=== PATIENT | female | born 1945 | race Caucasian/White ===

== ENCOUNTER → 2017-04-20 | Outpatient (CLI) | payer MEDICARE, BC ==
[2017-04-20 18:56] LABS: Basophils % (A) 1 %; CH 33.2; CHCM 32.6; Eosinophils # (A) 0.1 k/uL (0-0.7); Eosinophils % (A) 2 %; HCT 44.4 % (34.0-46.0); HDW 2.08; HGB 14.6 gm/dL (11.4-16.0); Luc # (Auto) 0.13; Luc % (Auto) 2; Lymphocytes % (A) 35 %; MCH 33.7 pg (25.0-35.0); MCV 102.2 fL (80.0-100.0); Mean Platelet Volume 7.4; Monocytes # (A) 0.3 k/uL (0-1.0); Monocytes % (A) 6 %; Neutrophils % (A) 54 %; RBC 4.34 m/uL (3.80-5.40); RDW 12.1 % (11.5-15.5); WBC 5.6 k/uL (3.8-10.6); WBC (Perox) 5.55
[2017-04-20 19:08] LABS: ALT 42 U/L (9-52); AST 24 U/L (14-36); Alkaline Phosphatase 71 U/L (38-126); Anion Gap 10 mmol/L; Blood Urea Nitrogen 16 mg/dL (7-17); Calcium 9.7 mg/dL (8.4-10.2); Carbon Dioxide 26 mmol/L (22-30); Chloride 104 mmol/L (98-107); Cholesterol 212 mg/dL (<200); Glucose 89 mg/dL (74-99); HDL Cholesterol 70 mg/dL (40-60); Non-African American GFR(MDRD) >60 (>60 ml/min/1.73 sqM); Potassium 4.6 mmol/L (3.5-5.1); Sodium 140 mmol/L (137-145); Total Bilirubin 1.6 mg/dL (0.2-1.3)
== END | disposition home or self-care (01) ==
LOC: MMGSC 09:17
PROVIDERS: ATTEND Family Medicine
DX: I10 Essential (primary) hypertension (principal)
CPT/HCPCS: 36415; 80053; 80061; 84439; 84443; 85025

== ENCOUNTER → 2019-06-07 | Outpatient (CLI) | payer MEDICARE, BC ==
--- NOTE | 2019-06-08 07:05 | US ---
EXAMINATION TYPE: US pelvic limited DATE OF EXAM: 06/07/2019 COMPARISON: NONE CLINICAL HISTORY: R10.2 Pelvic and perineal pain. Pain left posterior buttocks area. TECHNIQUE: Transabdominal (TA). Scanned area of concern. No abnormalities seen posterior left buttocks. IMPRESSION: Scanning of the area of clinical concern shows no worrisome solid or cystic mass or abnor mal fluid collection. Normal subcutaneous fat and deeper muscle tissue is noted on images saved .
== END | disposition home or self-care (01) ==
LOC: RADUSWWP 15:30
PROVIDERS: ATTEND Family Medicine
DX: R10.2 Pelvic and perineal pain (principal)
CPT/HCPCS: 76857

== ENCOUNTER 2020-09-16 10:39 | Emergency (ER) | payer MEDICARE, BC ==
[2020-09-16] MEDS ORDERED: MECLIZINE 12.5 MG TAB PO STA (11:04)
--- NOTE | 2020-09-16 11:06 | ED ---
General Adult HPI - General Chief complaint: Dizziness Stated complaint: dizzy, nausea Time Seen by Provider: 09/16/20 10:51 Source: patient Mode of arrival: wheelchair Limitations: no limitations, physical limitation - History of Present Illness Initial comments: Dictation was produced using [employer] dictation software. please excuse any grammatical, word or spelling errors. This patient was cared for during a federal and state declared state of emergency secondary to Covid 19 Chief Complaint: 75-year-old female with past medical history of hypertension presents with vertigo History of Present Illness: 75-year-old female for the last week she has been suffering from vertiginous symptoms. Patient states that every time she moves about turns her head she feels like the room is spinning. Patient has a history of vertigo. Denies any difficulty walking. She states that she present to the emergency department today because her symptoms got worse and rude to take her dog to that appointment. Patient denies any history of stroke. States her symptoms are really bad whenever she is lying down in a decubitus position either right or left. States that if she stays still symptoms are improved. Patient has any gait instability. The ROS documented in this emergency department record has been reviewed and confirmed by me. Those systems with pertinent positive or negative responses have been documented in the HPI. All other systems are other negative and/or noncontributory. PHYSICAL EXAM: General Impression: Alert and oriented x3, not in acute distress HEENT: Normocephalic atraumatic, extra-ocular movements intact, pupils equal and reactive to light bilaterally, mucous membranes moist. Cardiovascular: Heart regular rate and rhythm Chest: Able to complete full sentences, no retractions, no tachypnea Abdomen: abdomen soft, non-tender, non-distended, no organomegaly Musculoskeletal: Pulses present and equal in all extremities, no peripheral edema Motor: no focal deficits noted Neurological: CN II-XII grossly intact, no focal motor or sensory deficits noted, left beating nystagmus with left lateral decubitus position, negative test askew, no direction changing nystagmus, negative head impulse test. Skin: Intact with no visualized rashes Psych: Normal affect and mood ED course: 75 yo female presents to emergency department with clinical presentation consistent with benign vertigo. Signs upon arrival are within acceptable limits. Patient does not have any high-risk features on physical examination. Laboratory evaluation obtained. CBC unremarkable. Metabolic panel is negative. Urinalysis shows 15 white blood cells. Patient reevaluated after Antivert with improvement of her vertiginous symptoms. Patient states she has not eaten lunch yet states that she feels a little hungry and maybe a little lightheaded from it. She wants to be discharged so that they can have lunch. Patient given prescription for Antivert and antibiotics. She has an appointment with her primary care physician on . Patient is encouraged to keep that appointment and to extremity feels her primary care physician of her ER visit today. Patient agreeable to disposition.. EKG interpretation: Ventricular rate 61, normal sinus rhythm, NC interval 150, QRS 80, QTc 434. No NC prolongation, no QTC prolongation, no ST or T-wave changes noted. Overall, this EKG is unremarkable - Related Data Home Medications Medication Instructions Recorded Confirmed hydroCHLOROthiazide [Hydrodiuril] 25 mg PO PC-LUNCH 09/16/20 09/16/20 Previous Rx's Medication Instructions Recorded Cephalexin [Keflex] 500 mg PO Q6HR 7 Days #28 cap 09/16/20 Meclizine [Antivert] 25 mg PO TID PRN #15 tab 09/16/20 Allergies Allergy/AdvReac Type Severity Reaction Status Date / Time No Known Allergies Allergy Verified 09/16/20 12:05 Review of Systems ROS Statement: Those systems with pertinent positive or pertinent negative responses have been documented in the HPI. ROS Other: All systems not noted in ROS Statement are negative. Past Medical History Past Medical History: Hypertension History of Any Multi-Drug Resistant Organisms: None Reported Past Surgical History: Appendectomy, Cholecystectomy, Hysterectomy, Tonsillectomy Past Psychological History: No Psychological Hx Reported Smoking Status: Never smoker Past Alcohol Use History: None Reported Past Drug Use History: None Reported General Exam Limitations: no limitations, physical limitation Course Vital Signs 09/16/20 09/16/20 10:43 11:17 Temperature 97.9 F Pulse Rate 64 86 Respiratory 18 16 Rate Blood Pressure 185/96 145/81 O2 Sat by Pulse 99 100 Oximetry Medical Decision Making - Lab Data Result diagrams: 09/16/20 11:06 09/16/20 11:06 Lab Results 09/16/20 09/16/20 09/16/20 Range/Units 11:06 11:06 11:06 WBC 8.1 (3.8-10.6) k/uL RBC 4.78 (3.80-5.40) m/uL Hgb 15.8 (11.4-16.0) gm/dL Hct 47.0 H (34.0-46.0) % MCV 98.4 (80.0-100.0) fL MCH 33.1 (25.0-35.0) pg MCHC 33.6 (31.0-37.0) g/dL RDW 11.7 (11.5-15.5) % Plt Count 252 (150-450) k/uL MPV 7.0 Neutrophils % 55 % Lymphocytes % 35 % Monocytes % 5 % Eosinophils % 2 % Basophils % 1 % Neutrophils # 4.4 (1.3-7.7) k/uL Lymphocytes # 2.8 (1.0-4.8) k/uL Monocytes # 0.4 (0-1.0) k/uL Eosinophils # 0.2 (0-0.7) k/uL Basophils # 0.1 (0-0.2) k/uL Sodium 139 (137-145) mmol/L Potassium 4.1 (3.5-5.1) mmol/L Chloride 105 (98-107) mmol/L Carbon Dioxide 25 (22-30) mmol/L Anion Gap 9 mmol/L BUN 22 H (7-17) mg/dL Creatinine 0.88 (0.52-1.04) mg/dL Est GFR (CKD-EPI)AfAm 74 (>60 ml/min/1.73 sqM) Est GFR (CKD-EPI)NonAf 64 (>60 ml/min/1.73 sqM) Glucose 103 H (74-99) mg/dL Calcium 9.8 (8.4-10.2) mg/dL Magnesium 1.9 (1.6-2.3) mg/dL Urine Color Yellow Urine Appearance Clear (Clear) Urine pH 6.0 (5.0-8.0) Ur Specific [place] 1.011 (1.001-1.035) Urine Protein Negative (Negative) Urine Glucose (UA) Negative (Negative) Urine Ketones Negative (Negative) Urine Blood Negative (Negative) Urine Nitrite Negative (Negative) Urine Bilirubin Negative (Negative) Urine Urobilinogen <2.0 (<2.0) mg/dL Ur Leukocyte Esterase Moderate H (Negative) Urine RBC 1 (0-5) /hpf Urine WBC 15 H (0-5) /hpf Ur Squamous Epith Cells 1 (0-4) /hpf Urine Bacteria Many H (None) /hpf Urine Mucus Rare H (None) /hpf Disposition Clinical Impression: Vertigo Disposition: HOME SELF-CARE Condition: Good Instructions (If sedation given, give patient instructions): Vertigo (ED), Urinary Tract Infection in Women (ED) Prescriptions: Meclizine [Antivert] 25 mg PO TID PRN #15 tab PRN Reason: dizziness Cephalexin [Keflex] 500 mg PO Q6HR 7 Days #28 cap Is patient prescribed a controlled substance at d/c from ED?: No Referrals: Tere Garces MD [Primary Care Provider] - 1-2 days Time of Disposition: 12:41
[2020-09-16 11:29] LABS: Basophils # (A) 0.1 k/uL (0-0.2); Basophils % (A) 1 %; Eosinophils # (A) 0.2 k/uL (0-0.7); Eosinophils % (A) 2 %; HGB 15.8 gm/dL (11.4-16.0); Lymphocytes # (A) 2.8 k/uL (1.0-4.8); Lymphocytes % (A) 35 %; MCH 33.1 pg (25.0-35.0); MCHC 33.6 g/dL (31.0-37.0); MCV 98.4 fL (80.0-100.0); Monocytes # (A) 0.4 k/uL (0-1.0); Monocytes % (A) 5 %; Neutrophils # (A) 4.4 k/uL (1.3-7.7); Neutrophils % (A) 55 %; Platelet Count 252 k/uL (150-450); RBC 4.78 m/uL (3.80-5.40); RDW 11.7 % (11.5-15.5); WBC 8.1 k/uL (3.8-10.6)
[2020-09-16 11:38] LABS: Appearance,Urine Clear (Clear); Bacteria,Urine Many /hpf; Bilirubin,Urine Negative (Negative); Blood,Urine Negative (Negative); Calcium 9.8 mg/dL (8.4-10.2); Color,Urine Yellow; Glucose,Urine (UA) Negative (Negative); Ketones,Urine Negative (Negative); Leukocyte Esterase,Urine Moderate (Negative); Magnesium 1.9 mg/dL (1.6-2.3); Mucus,Urine Rare /hpf; Nitrite,Urine Negative (Negative); Potassium 4.1 mmol/L (3.5-5.1); Protein,Urine Negative (Negative); RBC,Urine 1 /hpf (0-5); Specific Gravity,Urine 1.011 (1.001-1.035); Squamous Epithelial Cell,Urine 1 /hpf (0-4); Urobilinogen,Urine <2.0 mg/dL (<2.0); WBC,Urine 15 /hpf (0-5)
[2020-09-16 12:59] VITALS: BP 152/68; PULSE 61; RESP 18; TEMP 98.3
== END 2020-09-16 13:03 | disposition home or self-care (01) ==
LOC: EC 10:39
DX: R42 Dizziness and giddiness (principal); R82.998 Other abnormal findings in urine; I10 Essential (primary) hypertension; Z79.899 Other long term (current) drug therapy
CPT/HCPCS: 36415; 80048; 81001; 83735; 85025; 87077; 87086; 87186; 93005; 99284

== ENCOUNTER 2021-09-13 00:06 | Emergency (ER) | payer MEDICARE, BC ==
[2021-09-13 00:30] VITALS: RESP 16; TEMP 97
--- NOTE | 2021-09-13 00:48 | ED ---
Neuro HPI - General Chief Complaint: Neuro Symptoms/Deficit Stated Complaint: Urogenital Time Seen by Provider: 09/13/21 00:09 Source: patient - History of Present Illness Is the patient presenting with stroke symptoms?: Yes Last Known Well Date: 09/12/21 Last Known Well Time: 20:30 Onset/Timin -: hour(s) Initial Comments: This patient is a 76-year-old woman who presents to have evaluation for a number of things that started this evening after 8 PM. The patient states that she felt like her heart started racing at 8 PM. She started feeling flushed and she checked her blood pressure. I was found to be somewhat elevated. She waited and then rechecked it and the blood pressure was a little over 190/100. Her heart rate was up to 106. She started feeling like she was having some numbness on the left side of her face. When the symptoms continued she phoned EMS and they brought her here. Patient states that she subsequently is feeling much better. The facial numbness has gone away. She did not notice any weakness or numbness of the extremities. No change in vision, speech or swallowing. Location: left face History of same: No Place: home Severity: moderate Quality: numb Improves With: time Worsens With: none Context: gradual onset Associated Symptoms: denies other symptoms Treatments Prior to Arrival: none - Related Data Home Medications: Home Medications Medication Instructions Recorded Confirmed hydroCHLOROthiazide [Hydrodiuril] 25 mg PO PC-LUNCH 09/16/20 09/16/20 Previous Rx's Medication Instructions Recorded Cephalexin [Keflex] 500 mg PO Q6HR 7 Days #28 cap 09/16/20 Meclizine [Antivert] 25 mg PO TID PRN #15 tab 09/16/20 Allergies/Adverse Reactions: Allergies Allergy/AdvReac Type Severity Reaction Status Date / Time No Known Allergies Allergy Verified 09/16/20 12:05 Review of Systems ROS Statement: Those systems with pertinent positive or pertinent negative responses have been documented in the HPI. ROS Other: All systems not noted in ROS Statement are negative. Constitutional: Denies: fever, chills, weakness Eyes: Denies: eye pain, vision change Respiratory: Denies: cough, dyspnea, wheezes Cardiovascular: Reports: palpitations. Denies: chest pain, orthopnea, edema, syncope Gastrointestinal: Denies: abdominal pain, vomiting, diarrhea Genitourinary: Denies: dysuria, hematuria Musculoskeletal: Denies: back pain Skin: Denies: rash Neurological: Reports: as per HPI, numbness. Denies: headache, weakness, confusion Psychiatric: Reports: anxiety General Exam General appearance: alert, in no apparent distress Head exam: Present: atraumatic, normocephalic Eye exam: Present: normal appearance, PERRL, EOMI. Absent: scleral icterus, conjunctival injection, nystagmus ENT exam: Present: normal oropharynx Neck exam: Present: normal inspection Respiratory exam: Present: normal lung sounds bilaterally. Absent: respiratory distress, wheezes, rales, rhonchi, stridor Cardiovascular Exam: Present: regular rate, normal rhythm, normal heart sounds. Absent: systolic murmur, diastolic murmur, rubs, gallop GI/Abdominal exam: Present: soft. Absent: distended, tenderness, guarding, rebound, rigid, mass Extremities exam: Present: normal inspection, normal capillary refill. Absent: pedal edema, calf tenderness Back exam: Present: normal inspection. Absent: CVA tenderness (R), CVA tenderness (L) Neurological exam: Present: alert, oriented X3, CN II-XII intact. Absent: motor sensory deficit Skin exam: Present: warm, dry, intact, normal color. Absent: rash Stroke MDM - Lab Data Result diagrams: 09/13/21 00:31 09/13/21 00:31 Lab Results 09/13/21 09/13/21 09/13/21 Range/Units 00:31 00:31 00:31 WBC 9.2 (3.8-10.6) k/uL RBC 4.00 (3.80-5.40) m/uL Hgb 13.1 (11.4-16.0) gm/dL Hct 41.0 (34.0-46.0) % MCV 102.4 H (80.0-100.0) fL MCH 32.7 (25.0-35.0) pg MCHC 31.9 (31.0-37.0) g/dL RDW 11.7 (11.5-15.5) % Plt Count 250 (150-450) k/uL MPV 7.4 Neutrophils % 60 % Lymphocytes % 29 % Monocytes % 6 % Eosinophils % 2 % Basophils % 1 % Neutrophils # 5.5 (1.3-7.7) k/uL Lymphocytes # 2.6 (1.0-4.8) k/uL Monocytes # 0.6 (0-1.0) k/uL Eosinophils # 0.2 (0-0.7) k/uL Basophils # 0.1 (0-0.2) k/uL PT 9.6 (9.0-12.0) sec INR 0.9 (<1.2) APTT 23.3 (22.0-30.0) sec Sodium 140 (137-145) mmol/L Potassium 3.8 (3.5-5.1) mmol/L Chloride 108 H (98-107) mmol/L Carbon Dioxide 24 (22-30) mmol/L Anion Gap 8 mmol/L BUN 22 H (7-17) mg/dL Creatinine 0.89 (0.52-1.04) mg/dL Est GFR (CKD-EPI)AfAm 72 (>60 ml/min/1.73 sqM) Est GFR (CKD-EPI)NonAf 63 (>60 ml/min/1.73 sqM) Glucose 105 H (74-99) mg/dL Calcium 9.1 (8.4-10.2) mg/dL Total Bilirubin 0.6 (0.2-1.3) mg/dL AST 23 (14-36) U/L ALT 18 (4-34) U/L Alkaline Phosphatase 75 (38-126) U/L Troponin I (0.000-0.034) ng/mL Total Protein 6.6 (6.3-8.2) g/dL Albumin 3.7 (3.5-5.0) g/dL 09/13/21 Range/Units 00:31 WBC (3.8-10.6) k/uL RBC (3.80-5.40) m/uL Hgb (11.4-16.0) gm/dL Hct (34.0-46.0) % MCV (80.0-100.0) fL MCH (25.0-35.0) pg MCHC (31.0-37.0) g/dL RDW (11.5-15.5) % Plt Count (150-450) k/uL MPV Neutrophils % % Lymphocytes % % Monocytes % % Eosinophils % % Basophils % % Neutrophils # (1.3-7.7) k/uL Lymphocytes # (1.0-4.8) k/uL Monocytes # (0-1.0) k/uL Eosinophils # (0-0.7) k/uL Basophils # (0-0.2) k/uL PT (9.0-12.0) sec INR (<1.2) APTT (22.0-30.0) sec Sodium (137-145) mmol/L Potassium (3.5-5.1) mmol/L Chloride (98-107) mmol/L Carbon Dioxide (22-30) mmol/L Anion Gap mmol/L BUN (7-17) mg/dL Creatinine (0.52-1.04) mg/dL Est GFR (CKD-EPI)AfAm (>60 ml/min/1.73 sqM) Est GFR (CKD-EPI)NonAf (>60 ml/min/1.73 sqM) Glucose (74-99) mg/dL Calcium (8.4-10.2) mg/dL Total Bilirubin (0.2-1.3) mg/dL AST (14-36) U/L ALT (4-34) U/L Alkaline Phosphatase (38-126) U/L Troponin I <0.012 (0.000-0.034) ng/mL Total Protein (6.3-8.2) g/dL Albumin (3.5-5.0) g/dL Past Medical History Past Medical History: Hypertension History of Any Multi-Drug Resistant Organisms: None Reported Past Surgical History: Appendectomy, Cholecystectomy, Hysterectomy, Tonsillectomy Past Psychological History: No Psychological Hx Reported Smoking Status: Never smoker Past Alcohol Use History: None Reported Past Drug Use History: None Reported Course Vital Signs 09/13/21 00:19 Temperature 97.0 F L Pulse Rate 69 Respiratory 16 Rate Blood Pressure 172/87 O2 Sat by Pulse 95 Oximetry Disposition Clinical Impression: Hypertension Narrative: Possible TIA Disposition: HOME SELF-CARE Condition: Good Instructions (If sedation given, give patient instructions): Transient Ischemic Attack (ED), Hypertension (ED) Is patient prescribed a controlled substance at d/c from ED?: No Referrals: Tere Garces MD [Primary Care Provider] - 1-2 days oJan Johnston MD [REFERRING] - 1-2 days
[2021-09-13 01:09] LABS: Basophils # (A) 0.1 k/uL (0-0.2); Basophils % (A) 1 %; Eosinophils # (A) 0.2 k/uL (0-0.7); Eosinophils % (A) 2 %; HGB 13.1 gm/dL (11.4-16.0); Lymphocytes # (A) 2.6 k/uL (1.0-4.8); Lymphocytes % (A) 29 %; MCH 32.7 pg (25.0-35.0); MCHC 31.9 g/dL (31.0-37.0); MCV 102.4 fL (80.0-100.0); Mean Platelet Volume 7.4; Monocytes # (A) 0.6 k/uL (0-1.0); Monocytes % (A) 6 %; Neutrophils # (A) 5.5 k/uL (1.3-7.7); Neutrophils % (A) 60 %; Platelet Count 250 k/uL (150-450); RDW 11.7 % (11.5-15.5); WBC 9.2 k/uL (3.8-10.6)
[2021-09-13 01:18] LABS: INR 0.9 (<1.2); Partial Thromboplastin Time 23.3 sec (22.0-30.0); Prothrombin Time 9.6 sec (9.0-12.0)
[2021-09-13 01:28] LABS: Albumin 3.7 g/dL (3.5-5.0); Calcium 9.1 mg/dL (8.4-10.2); Potassium 3.8 mmol/L (3.5-5.1); Total Bilirubin 0.6 mg/dL (0.2-1.3); Total Protein 6.6 g/dL (6.3-8.2)
--- NOTE | 2021-09-13 01:41 | CT ---
EXAMINATION TYPE: CT brain wo con for TPA DATE OF EXAM: 09/13/2021 COMPARISON: None HISTORY: Left Facial Numbness CT DLP: 1070.40 mGycm Automated exposure control for dose reduction was used. There is mild cerebral atrophy. There is no mass effect or midline shift. There is no sign of intracr anial hemorrhage. Calvarium is intact. Skull base is intact. There is normal aeration of the mastoid sinuses. IMPRESSION: Mild atrophy. No acute intracranial abnormality.
--- NOTE | 2021-09-13 01:43 | XR ---
EXAMINATION TYPE: XR chest 2V DATE OF EXAM: 09/13/2021 COMPARISON: NONE HISTORY: Altered mental status TECHNIQUE: 2 views FINDINGS: There is no heart failure nor confluent pneumonic infiltrate. Costophrenic angles are clear . Bony thorax is intact. IMPRESSION: No active cardiopulmonary disease. Normal heart.
[2021-09-13 04:03] VITALS: BP 159/85; PULSE 74
== END 2021-09-13 04:03 | disposition home or self-care (01) ==
LOC: EC 00:06
DX: I10 Essential (primary) hypertension (principal); Z79.899 Other long term (current) drug therapy
CPT/HCPCS: 36415; 70450; 71046; 80053; 84484; 85025; 85610; 85730; 93005; 99285

== ENCOUNTER 2021-09-30 11:07 | Day surgery (SDC) | payer MEDICARE, BC ==
[2021-09-25 14:48] VITALS: BMI 27.4
[~2021-09-30 11:07] MED LIST: LACTATED RINGERS 1,000 ML IV SCH; LIDOCAINE 1% (10MG/ML) FOR IV START INTRADERMA PRN
[2021-09-30 11:49] VITALS: TEMP 98.3
[2021-09-30] MEDS ORDERED: fentaNYL (PF) 50 MCG/ML 2 ML AMP ONE (11:51)
[2021-09-30] MEDS ORDERED: MIDAZOLAM 2 MG/2 ML VIAL ONE (11:51)
[2021-09-30] MEDS ORDERED: PROPOFOL 10 MG/ML 20 ML VIAL IV ONE (11:51)
--- NOTE | 2021-09-30 12:19 | P.PCN ---
Date of Procedure: 09/30/21 Procedure(s) Performed: BRIEF HISTORY: Patient is a 76-year-old pleasant white female scheduled for an elective colonoscopy as a part of evaluation of positive cologuard. Her last colonoscopy was 4 years ago. PROCEDURE PERFORMED: Colonoscopy. PREOPERATIVE DIAGNOSIS: Positive cologuard. IV sedation per Anesthesia. PROCEDURE: After informed consent was obtained, the patient, was brought into the endoscopy unit. IV sedation was administered by Anesthesia under continuous monitoring. Digital rectal examination was normal. Initially the Olympus CF-160 flexible video colonoscopy inserted in the rectum and advanced beyond the sigmoid colon because of acute angulation and extensive diverticulosis. At this time pediatric colonoscope was then inserted in the rectum, gradually advanced into the cecum widysphagiaficulty. Careful examination was performed as the scope was gradually being withdrawn. Ileocecal valve and the appendiceal orifice were visualized and appeared normal. Prep wasFair. There was some solid stool noted in some areas of the colon could not be adequately visualized. However the visualized portions of the mucosa of the cecum, ascending colon, transverse colon, descending colon, sigmoid colon, and rectum appeared normal. moderate sigmoid diverticula seen. Retroflexion was performed in the rectum agrade 2 internal hemorrhoids were seen. The patient tolerated the procedure well. IMPRESSION:' Moderate sigmoid diverticulosis Grade 2 internal hemorrhoids RECOMMENDATIONS: Findings of this examination were discussed with the patient as well as a family. she was advised to be a high-fiber diet and take fiber supplements a regular basis.
[2021-09-30 12:36] VITALS: BP 147/72; PULSE 82; RESP 18
== END 2021-09-30 12:51 | disposition home or self-care (01) ==
LOC: ORWHC2ENDO 11:07
PROVIDERS: ATTEND Internal Medicine Gastroenterology
DX: K57.30 Diverticulosis of large intestine without perforation or abscess without bleeding (principal); K64.1 Second degree hemorrhoids; Z79.899 Other long term (current) drug therapy; I10 Essential (primary) hypertension; Z79.82 Long term (current) use of aspirin; Z90.710 Acquired absence of both cervix and uterus; Z90.49 Acquired absence of other specified parts of digestive tract; Z98.890 Other specified postprocedural states
CPT/HCPCS: 45378; J2250; J3010; J2704

== ENCOUNTER → 2022-06-29 | Outpatient (CLI) | payer MEDICARE, BC ==
[2022-06-29 12:03] LABS: INR 0.9 (<1.2); Partial Thromboplastin Time 23.3 sec (22.0-30.0); Prothrombin Time 9.6 sec (9.0-12.0)
[2022-06-29 16:32] LABS: Basophils % (A) 1.3 %; Eosinophils # (A) 0.12 X 10*3/uL (0.04-0.35); Eosinophils % (A) 1.5 %; HCT 45.1 % (37.2-46.3); HGB 14.7 g/dL (12.0-15.0); Immature Grans, Automated 0.5 %; Lymphocytes # (A) 2.55 X 10*3/uL (0.90-5.00); Lymphocytes % (A) 32.8 %; MCHC 32.6 g/dL (32.0-37.0); MCV 101.3 fL (80.0-97.0); Mean Platelet Volume 9.9 fL (9.5-12.2); Monocytes # (A) 0.55 X 10*3/uL (0.20-1.00); Monocytes % (A) 7.1 %; NRBC Per 100 WBC 0 /100 WBCS (0.0-0.0); Neutrophils # (A) 4.41 X 10*3/uL (1.80-7.70); Neutrophils % (A) 56.8 %; Platelet Count 320 X 10*3/uL (140-440); RBC 4.45 X 10*6/uL (4.10-5.20); RDW 11.9 % (11.5-14.5); WBC 7.77 X 10*3/uL (4.50-10.00)
[2022-06-29 18:07] LABS: Anion Gap 9.7 mmol/L (10.00-18.00); Carbon Dioxide 26.3 mmol/L (20.0-27.5); Potassium 4.4 mmol/L (3.5-5.5)
== END | disposition home or self-care (01) ==
LOC: LABWHC1 10:31
PROVIDERS: ATTEND Orthopaedic Surgery Sports Medicine
DX: M17.12 Unilateral primary osteoarthritis, left knee (principal)
CPT/HCPCS: 36415; 80051; 83036; 85025; 85610; 85730; 87070; 93005